=== PATIENT | male | born 1960 | race Caucasian/White ===

== ENCOUNTER 2021-02-16 09:15 | Day surgery (SDC) | payer MEDICARE, OTHER ==
[~2021-02-16] VITALS: Ht 188 cm; Wt 101.2 kg
--- NOTE | 2021-02-16 09:37 | NUR ---
02/16/21 0937 Shonda Durham FIRST ATTEMPT MISSED BY RN IN THE R HAND. SECOND ATTEMPT SUCCESFUL IUN RH BY RN. PT TOW. PATIENT TOLERATED THE SUTAB FOR PREP
== END 2021-02-16 11:20 | disposition home or self-care (01) ==
LOC: ORSCSDS 09:15
PROVIDERS: Student in an Organized Health Care Education/Training Program
PROC: 0DBP8ZX Excision of Rectum, Via Natural or Artificial Opening Endoscopic, Diagnostic (ICD-10-PCS; principal; 2021-02-16 10:15)
PROC: 0DBN8ZX Excision of Sigmoid Colon, Via Natural or Artificial Opening Endoscopic, Diagnostic (ICD-10-PCS; principal; 2021-02-16 10:15)
PROC: 0DBH8ZX Excision of Cecum, Via Natural or Artificial Opening Endoscopic, Diagnostic (ICD-10-PCS; principal; 2021-02-16 10:15)
PROC: 0DBM8ZX Excision of Descending Colon, Via Natural or Artificial Opening Endoscopic, Diagnostic (ICD-10-PCS; principal; 2021-02-16 10:15)
PROC: 0DBL8ZX Excision of Transverse Colon, Via Natural or Artificial Opening Endoscopic, Diagnostic (ICD-10-PCS; principal; 2021-02-16 10:15)
DX: Z12.11 Encounter for screening for malignant neoplasm of colon (principal); D12.0 Benign neoplasm of cecum; D12.4 Benign neoplasm of descending colon; K62.1 Rectal polyp; K57.30 Diverticulosis of large intestine without perforation or abscess without bleeding; F17.210 Nicotine dependence, cigarettes, uncomplicated
CPT/HCPCS: 88305; J2704; J7120

== ENCOUNTER 2024-01-08 07:33 | Day surgery (SDC) | payer MEDICARE, OTHER | END 2024-01-08 22:47 | disposition home or self-care (01) | LOC: MHTC 07:33 → CT 07:33 → MHTC 07:35 → CT 08:00 | DX: I25.10 Atherosclerotic heart disease of native coronary artery without angina pectoris (principal); E78.5 Hyperlipidemia, unspecified ==